=== PATIENT | female | born 1955 | race Caucasian/White ===

== ENCOUNTER 2018-03-25 06:08 | Inpatient (IN) | payer BC ==
[2018-03-25] MEDS ORDERED: POLYMYXIN/BACITRACIN 1L IRRIG (07:10)
[2018-03-25] MEDS ORDERED: PROPOFOL 20 ML (07:45)
[2018-03-25] MEDS ORDERED: ROCURONIUM 50 MG INJ ×2 (07:45→08:46)
[2018-03-25] MEDS ORDERED: HYDROmorphONE 2 MG/ML SYG (07:46)
[2018-03-25] MEDS ORDERED: MIDAZOLAM 1 MG/ML 2 ML INJ (07:46)
[2018-03-25] MEDS ORDERED: CEFAZOLIN 1 GM INJ (07:46)
[2018-03-25] MEDS ORDERED: METOCLOPRAMIDE 10 MG INJ (07:46)
[2018-03-25] MEDS ORDERED: DEXAMETHASONE 4 MG/ML 1 ML INJ (08:27)
[2018-03-25] MEDS ORDERED: METOPROLOL 5 MG INJ (08:45)
[2018-03-25] MEDS: THROMBIN 5000 UNIT VIAL (09:08)
[2018-03-25] MEDS: GELATIN SIZE 100 SPONGE (09:08)
[2018-03-25] MEDS: POLYMYXIN/BACITRACIN 1L IRRIG IRR ×2 (09:08)
[2018-03-25] MEDS ORDERED: EPHEDrine SULFATE 50 MG/5 ML SYG (10:24)
[2018-03-25] MEDS ORDERED: HYDROmorphONE 0.5 MG/0.5 ML SYG IV ×2 (11:00→12:00)
[2018-03-25] MEDS ORDERED: DIPHENHYDRAMINE 50 MG INJ IV (11:00)
[2018-03-25] MEDS ORDERED: MEPERIDINE 25 MG INJ IV (11:00)
[2018-03-25] MEDS ORDERED: LABETALOL HCL 20MG INJ IV (11:00)
[2018-03-25] MEDS ORDERED: hydrALAzine 20 MG INJ IV ×2 (11:00→13:00)
[2018-03-25] MEDS: ROPIVACAINE 0.5 % 30 ML VIAL (11:07)
[2018-03-25] MEDS ORDERED: HYDROCODONE/APAP (10/325) TAB PO (12:00)
[2018-03-25] MEDS ORDERED: NALOXONE (0.4 MG/ML) INJ IV (12:00)
[2018-03-25] MEDS ORDERED: NACL 0.9% 3 ML SYG IV ×2 (12:00→13:00)
[2018-03-25] MEDS: ONDANSETRON 4 MG INJ IV ×2 (12:12→13:41)
[2018-03-25] MEDS: HYDROmorphONE 0.5 MG/0.5 ML SYG IV ×2 (12:41→13:30)
[2018-03-25] MEDS ORDERED: ONDANSETRON 4 MG INJ IV ×2 (13:00→19:00)
[2018-03-25] MEDS ORDERED: ZOLPIDEM 5 MG TAB PO (13:00)
[2018-03-25] MEDS ORDERED: ACETAMINOPHEN 650MG/20.3ML CUP PO (13:00)
[2018-03-25] MEDS ORDERED: IPRATROPIUM (NEB) 0.5 MG/2.5 ML AMP NEB (13:00)
[2018-03-25] MEDS ORDERED: ALBUTEROL 0.083% (NEB) 2.5 MG/3 ML AMP NEB (13:00)
[2018-03-25] MEDS: DOCUSATE SODIUM 100 MG CAP PO (13:00)
[2018-03-25 13:23] LABS: ADD MAN DIFF? NO
[2018-03-25 13:27] LABS: BASOPHILS % 0.3 % (0.0-2.0); HEMATOCRIT 35.4 % (37.0-47.0); LYMPHOCYTES # 0.7 10^3/ul (0.8-2.9); LYMPHOCYTES % 7.6 % (15.0-51.0); MEAN CORPUSCULAR HEMOGLOBIN 31.7 pg (29.0-33.0); MEAN CORPUSCULAR HGB CONC 33.9 g/dl (32.0-37.0); MEAN CORPUSCULAR VOLUME 93.4 fl (82.0-101.0); MONOCYTE # 0.1 10^3/ul (0.3-0.9); MONOCYTES % 0.8 % (0.0-11.0); NEUTROPHIL # 8.9 10^3/ul (1.6-7.5); NEUTROPHILS % 90.7 % (39.0-77.0); PLATELET COUNT 168 10^3/UL (140-415); RED BLOOD COUNT 3.79 10^6/ul (4.20-5.40)
[2018-03-25 13:27] LABS: WHITE BLOOD COUNT 9.8 10^3/ul (4.8-10.8)
[2018-03-25] MEDS: NS + KCL 20 MEQ 1,000 ML IV ×2 (13:41→23:03)
[2018-03-25 13:58] LABS: ANION GAP 11 (8-16); BLOOD UREA NITROGEN 13 mg/dl (7-20); CALCIUM 8.6 mg/dl (8.4-10.2); CARBON DIOXIDE 26 mmol/L (21-31); CHLORIDE 108 mmol/L (97-110); CREATININE 0.65 mg/dl (0.44-1.00); GLUCOSE 231 mg/dl (70-220); POTASSIUM 3.9 mmol/L (3.5-5.1); SODIUM 141 mmol/L (135-144)
[2018-03-25] MEDS: CEFAZOLIN 2 GM/50 ML (PMX) 50 ML IVPB ×2 (15:46→21:21)
[2018-03-25] MEDS: HYDROmorphONE 1 MG/ML SYG IV ×3 (15:56→23:04)
[2018-03-25] MEDS: METOCLOPRAMIDE 10 MG INJ IV ×2 (15:56→23:04)
[2018-03-25] MEDS: HYDROCODONE/APAP (5/325) TAB PO (18:00)
[2018-03-25] MEDS: ONDANSETRON INJ 8 MG in SOD CHLORIDE 0.9% 50 ML IV (19:45)
[2018-03-25] MEDS: FAMOTIDINE 20 MG INJ IV (21:26)
[2018-03-26] MEDS: DOCUSATE SODIUM 100 MG CAP PO ×2 (00:14→13:58)
[2018-03-26] MEDS: HYDROmorphONE 1 MG/ML SYG IV ×4 (02:10→22:26)
[2018-03-26 05:04] LABS: ADD MAN DIFF? NO
[2018-03-26 05:13] LABS: BASOPHILS % 0.2 % (0.0-2.0); HEMOGLOBIN 10.9 g/dl (12.0-16.0); LYMPHOCYTES # 0.6 10^3/ul (0.8-2.9); LYMPHOCYTES % 5.1 % (15.0-51.0); MEAN CORPUSCULAR HGB CONC 34.1 g/dl (32.0-37.0); MEAN CORPUSCULAR VOLUME 93.8 fl (82.0-101.0); MEAN PLATELET VOLUME 9.9 fl (7.4-10.4); MONOCYTE # 0.7 10^3/ul (0.3-0.9); MONOCYTES % 5.7 % (0.0-11.0); NEUTROPHIL # 10.5 10^3/ul (1.6-7.5); NEUTROPHILS % 88.4 % (39.0-77.0); PLATELET COUNT 177 10^3/UL (140-415); RED BLOOD COUNT 3.41 10^6/ul (4.20-5.40); RED CELL DISTRIBUTION WIDTH 12.8 % (11.5-14.5)
[2018-03-26 05:13] LABS: WHITE BLOOD COUNT 11.8 10^3/ul (4.8-10.8)
[2018-03-26 05:23] LABS: HEMOGLOBIN A1C 5.2 % (0-5.9)
[2018-03-26 05:36] LABS: ANION GAP 12 (8-16); BLOOD UREA NITROGEN 14 mg/dl (7-20); CALCIUM 8.3 mg/dl (8.4-10.2); CARBON DIOXIDE 25 mmol/L (21-31); CHLORIDE 111 mmol/L (97-110); CREATININE 0.66 mg/dl (0.44-1.00); GLUCOSE 152 mg/dl (70-220); POTASSIUM 4.6 mmol/L (3.5-5.1); SODIUM 143 mmol/L (135-144)
[2018-03-26] MEDS: CEFAZOLIN 2 GM/50 ML (PMX) 50 ML IVPB ×3 (05:53→22:34)
[2018-03-26] MEDS ORDERED: PANTOPRAZOLE (EC) 40 MG TAB PO (06:00)
[2018-03-26] MEDS: AMLODIPINE 2.5 MG TAB PO (09:08)
[2018-03-26] MEDS: FAMOTIDINE 20 MG INJ IV ×2 (09:08→22:23)
[2018-03-26] MEDS: NS + KCL 20 MEQ 1,000 ML IV ×3 (09:08→22:35)
[2018-03-26] MEDS: METOCLOPRAMIDE 10 MG INJ IV ×2 (09:28→19:36)
[2018-03-26] MEDS: ONDANSETRON INJ 8 MG in SOD CHLORIDE 0.9% 50 ML IV (13:57)
[2018-03-26] MEDS: CARISOPRODOL 350 MG TAB PO (13:58)
[2018-03-27] MEDS: HYDROmorphONE 1 MG/ML SYG IV ×5 (01:22→22:36)
[2018-03-27] MEDS: CEFAZOLIN 2 GM/50 ML (PMX) 50 ML IVPB ×4 (05:31→22:41)
[2018-03-27] MEDS: FAMOTIDINE 20 MG INJ IV ×2 (09:06→20:49)
[2018-03-27] MEDS: NS + KCL 20 MEQ 1,000 ML IV ×2 (09:10→20:49)
[2018-03-27] MEDS: AMLODIPINE 2.5 MG TAB PO (09:10)
[2018-03-27] MEDS: DOCUSATE SODIUM 100 MG CAP PO ×2 (09:10→21:00)
[2018-03-27] MEDS: METOCLOPRAMIDE 10 MG INJ IV ×2 (09:12→18:44)
[2018-03-27] MEDS: HYDROCODONE/APAP (5/325) TAB PO (12:13)
[2018-03-27] MEDS: CARISOPRODOL 350 MG TAB PO (12:13)
[2018-03-27] MEDS: ONDANSETRON INJ 8 MG in SOD CHLORIDE 0.9% 50 ML IV ×2 (13:48→22:35)
[2018-03-28] MEDS: METOCLOPRAMIDE 10 MG INJ IV ×3 (05:48→16:55)
[2018-03-28] MEDS: HYDROmorphONE 1 MG/ML SYG IV ×4 (05:49→21:42)
[2018-03-28] MEDS: CEFAZOLIN 2 GM/50 ML (PMX) 50 ML IVPB ×3 (05:49→22:26)
[2018-03-28] MEDS: DOCUSATE SODIUM 100 MG CAP PO ×2 (09:00→21:00)
[2018-03-28] MEDS: FAMOTIDINE 20 MG INJ IV ×2 (09:11→21:42)
[2018-03-28] MEDS: AMLODIPINE 2.5 MG TAB PO (09:12)
[2018-03-28] MEDS: NS + KCL 20 MEQ 1,000 ML IV ×2 (11:37→21:30)
[2018-03-28] MEDS: ONDANSETRON INJ 8 MG in SOD CHLORIDE 0.9% 50 ML IV (21:27)
[2018-03-29] MEDS: NS + KCL 20 MEQ 1,000 ML IV ×2 (03:10→17:30)
[2018-03-29] MEDS: HYDROmorphONE 1 MG/ML SYG IV ×3 (03:54→19:32)
[2018-03-29] MEDS: METOCLOPRAMIDE 10 MG INJ IV ×3 (03:54→19:32)
[2018-03-29] MEDS: CEFAZOLIN 2 GM/50 ML (PMX) 50 ML IVPB ×3 (06:03→22:00)
[2018-03-29] MEDS: DOCUSATE SODIUM 100 MG CAP PO ×2 (09:29→22:24)
[2018-03-29] MEDS: FAMOTIDINE 20 MG INJ IV ×2 (09:29→22:24)
[2018-03-29] MEDS: AMLODIPINE 2.5 MG TAB PO (09:29)
[2018-03-29] MEDS: HYDROCODONE/APAP (5/325) TAB PO ×2 (15:07→22:24)
[2018-03-30] MEDS: METOCLOPRAMIDE 10 MG INJ IV (02:01)
[2018-03-30] MEDS: HYDROmorphONE 1 MG/ML SYG IV ×2 (02:01→23:23)
[2018-03-30] MEDS: NS + KCL 20 MEQ 1,000 ML IV ×3 (03:30→23:30)
[2018-03-30 04:50] LABS: ADD MAN DIFF? NO
[2018-03-30 04:54] LABS: WHITE BLOOD COUNT 5.4 10^3/ul (4.8-10.8)
[2018-03-30 04:54] LABS: BASOPHILS % 0.6 % (0.0-2.0); EOSINOPHILS # 0.1 10^3/ul (0.0-0.5); EOSINOPHILS % 1.7 % (0.0-7.0); HEMATOCRIT 29.5 % (37.0-47.0); LYMPHOCYTES # 1.5 10^3/ul (0.8-2.9); LYMPHOCYTES % 27.3 % (15.0-51.0); MEAN CORPUSCULAR HEMOGLOBIN 31.5 pg (29.0-33.0); MEAN CORPUSCULAR HGB CONC 33.9 g/dl (32.0-37.0); MEAN CORPUSCULAR VOLUME 93.1 fl (82.0-101.0); MEAN PLATELET VOLUME 9.6 fl (7.4-10.4); MONOCYTE # 0.6 10^3/ul (0.3-0.9); MONOCYTES % 10.4 % (0.0-11.0); NEUTROPHIL # 3.2 10^3/ul (1.6-7.5); NEUTROPHILS % 58.3 % (39.0-77.0); PLATELET COUNT 174 10^3/UL (140-415); RED BLOOD COUNT 3.17 10^6/ul (4.20-5.40); RED CELL DISTRIBUTION WIDTH 12.6 % (11.5-14.5)
[2018-03-30 05:24] LABS: ANION GAP 10 (8-16); BLOOD UREA NITROGEN 11 mg/dl (7-20); CALCIUM 9.1 mg/dl (8.4-10.2); CARBON DIOXIDE 32 mmol/L (21-31); CHLORIDE 99 mmol/L (97-110); CREATININE 0.58 mg/dl (0.44-1.00); GLUCOSE 111 mg/dl (70-220); POTASSIUM 4.3 mmol/L (3.5-5.1); SODIUM 137 mmol/L (135-144)
[2018-03-30] MEDS: CEFAZOLIN 2 GM/50 ML (PMX) 50 ML IVPB (06:00)
[2018-03-30] MEDS: DOCUSATE SODIUM 100 MG CAP PO ×2 (09:21→20:34)
[2018-03-30] MEDS: FAMOTIDINE 20 MG INJ IV ×2 (09:21→20:33)
[2018-03-30] MEDS: HYDROCODONE/APAP (5/325) TAB PO ×2 (09:21→20:34)
[2018-03-30] MEDS: AMLODIPINE 2.5 MG TAB PO (09:22)
[2018-03-30] MEDS: BISACODYL (EC) 5 MG TAB PO (13:59)
[2018-03-30] MEDS: CARISOPRODOL 350 MG TAB PO (13:59)
[2018-03-31] MEDS: METOCLOPRAMIDE 10 MG INJ IV (03:07)
[2018-03-31 05:22] LABS: ADD MAN DIFF? NO
[2018-03-31 05:30] LABS: BASOPHILS % 0.5 % (0.0-2.0); EOSINOPHILS # 0.1 10^3/ul (0.0-0.5); EOSINOPHILS % 1.3 % (0.0-7.0); HEMATOCRIT 31.8 % (37.0-47.0); HEMOGLOBIN 10.7 g/dl (12.0-16.0); LYMPHOCYTES # 1.2 10^3/ul (0.8-2.9); LYMPHOCYTES % 19.4 % (15.0-51.0); MEAN CORPUSCULAR HEMOGLOBIN 31.6 pg (29.0-33.0); MEAN CORPUSCULAR HGB CONC 33.6 g/dl (32.0-37.0); MEAN CORPUSCULAR VOLUME 93.8 fl (82.0-101.0); MEAN PLATELET VOLUME 9.9 fl (7.4-10.4); MONOCYTE # 0.6 10^3/ul (0.3-0.9); MONOCYTES % 9.5 % (0.0-11.0); NEUTROPHIL # 4.2 10^3/ul (1.6-7.5); NEUTROPHILS % 67.7 % (39.0-77.0); PLATELET COUNT 203 10^3/UL (140-415); RED BLOOD COUNT 3.39 10^6/ul (4.20-5.40); RED CELL DISTRIBUTION WIDTH 12.9 % (11.5-14.5)
[2018-03-31 05:30] LABS: WHITE BLOOD COUNT 6.2 10^3/ul (4.8-10.8)
[2018-03-31] MEDS: BISACODYL (EC) 5 MG TAB PO (06:05)
[2018-03-31 06:45] LABS: ANION GAP 11 (8-16); BLOOD UREA NITROGEN 14 mg/dl (7-20); CALCIUM 9.1 mg/dl (8.4-10.2); CARBON DIOXIDE 31 mmol/L (21-31); CHLORIDE 101 mmol/L (97-110); CREATININE 0.57 mg/dl (0.44-1.00); GLUCOSE 150 mg/dl (70-220); POTASSIUM 3.9 mmol/L (3.5-5.1); SODIUM 139 mmol/L (135-144)
[2018-03-31] MEDS: HYDROCODONE/APAP (5/325) TAB PO (06:56)
[2018-03-31] MEDS: DOCUSATE SODIUM 100 MG CAP PO (08:31)
[2018-03-31] MEDS: FAMOTIDINE 20 MG INJ IV (08:32)
[2018-03-31] MEDS: AMLODIPINE 2.5 MG TAB PO (08:32)
[2018-03-31] MEDS ORDERED: HYDROmorphONE 4 MG TAB PO (17:30)
[2018-03-31] MEDS ORDERED: FAMOTIDINE 20 MG TAB PO (21:00)
== END 2018-03-31 17:00 | disposition home or self-care (01) | DRG 473 ==
LOC: REC 06:08 → MS1 03-26 19:05 → ICU 12:03 → MS1 03-26 19:20
PROC: 0RG20K1 Fusion of 2 or more Cervical Vertebral Joints with Nonautologous Tissue Substitute, Posterior Approach, Posterior Column, Open Approach (ICD-10-PCS; principal; 2018-03-25 07:30)
PROC: 0RG40K1 Fusion of Cervicothoracic Vertebral Joint with Nonautologous Tissue Substitute, Posterior Approach, Posterior Column, Open Approach (ICD-10-PCS; 2018-03-25 07:30)
DX: M47.12 Other spondylosis with myelopathy, cervical region (principal); M48.02 Spinal stenosis, cervical region; I10 Essential (primary) hypertension; M54.12 Radiculopathy, cervical region
CPT/HCPCS: 72020; 72125; 80048; 83036; 85025; 86850; 86900; 86901; 88304; 88311; 97110; 97116; 97162; 97530